=== PATIENT | female | born 1930 ===

== ENCOUNTER 2018-04-16 11:04 | Inpatient (IN) | payer MEDICARE, MEDICAID ==
[~2018-04-16] VITALS: Ht 152.4 cm; Wt 49.9 kg
[2018-04-16] MEDS ORDERED: PROT946L GT (11:34)
[2018-04-16] MEDS ORDERED: TRAM50TA2 GT (11:34)
[2018-04-16] MEDS ORDERED: CRAN450T3 GT (11:34)
[2018-04-16] MEDS ORDERED: QUET25TA GT (11:34)
[2018-04-16] MEDS ORDERED: HYDR-3974 GT (11:34)
[2018-04-16] MEDS ORDERED: FAMO-132 GT (11:34)
[2018-04-16] MEDS ORDERED: ASCO500C18 GT (11:34)
[2018-04-16] MEDS ORDERED: IPRA3AMP23 IH (11:34)
[2018-04-16] MEDS ORDERED: CHLO473M3 MM (11:34)
[2018-04-16] MEDS ORDERED: CLON0.5T GT (11:34)
[2018-04-16] MEDS ORDERED: MULT237L4 GT (11:34)
[2018-04-16] MEDS ORDERED: DIATR MEGLU/DIATRIZOATE SODIUM 120 ML BOTTLE PO ONE (12:00)
[2018-04-16] MEDS ORDERED: IV NORMAL SALINE 1000 ML BAG IV ONE (12:30)
[2018-04-16 12:45] LABS: BASOPHILS % (AUTO) 0.5 % (0.0-2.0); EOSINOPHILS # (AUTO) 0.2 K/uL (0.0-0.7); EOSINOPHILS % (AUTO) 2.1 % (0.0-7.0); HEMATOCRIT 36.7 % (31.2-41.9); HEMOGLOBIN 12.3 g/dL (10.9-14.3); LYMPHOCYTES # (AUTO) 0.8 K/uL (20.0-40.0); LYMPHOCYTES % (AUTO) 9.2 % (20.5-51.5); MEAN CORPUSCULAR HEMOGLOBIN 30.3 uug (24.7-32.8); MEAN CORPUSCULAR HGB CONC 34 g/dL (32.3-35.6); MEAN CORPUSCULAR VOLUME 90.5 fL (75.5-95.3); MONOCYTES # (AUTO) 0.5 K/uL (2.0-10.0); NEUTROPHILS # (AUTO) 6.9 K/uL (1.8-8.9); NEUTROPHILS % (AUTO) 82.2 % (38.5-71.5); PLATELET COUNT (AUTO) 143 K/uL (179-408); RED BLOOD CELL COUNT(AUTO) 4.05 MIL/uL (3.63-4.92); WHITE BLOOD COUNT (AUTO) 8.4 K/uL (3.8-11.8)
[2018-04-16 13:04] LABS: CARBON DIOXIDE 27 mmol/L (21-32); CHLORIDE 102 mmol/L (98-107); CREATININE 0.6 mg/dL (0.6-1.3); GLUCOSE 115 mg/dL (74-106); POTASSIUM 4.3 mmol/L (3.5-5.1); UREA NITROGEN, BLOOD 24 mg/dL (7-18)
[2018-04-16 13:10] LABS: ALANINE AMINOTRANSFERASE 19 U/L (14-59); ALKALINE PHOSPHATASE 104 U/L (50-136); ASPARTATE AMINOTRANSFERASE 16 U/L (15-37); BILIRUBIN,DIRECT 0.1 mg/dL (0.0-0.2); BILIRUBIN,TOTAL 0.5 mg/dL (0.2-1.0); TOTAL PROTEIN, SERUM 8.1 g/dL (6.4-8.2)
[2018-04-16 15:00] VITALS: BP 133/52
[2018-04-16 17:00] VITALS: BP 98/56
[2018-04-16] MEDS ORDERED: TRAMADOL HCL 50 MG TABLET GT PRN (17:00)
[2018-04-16] MEDS ORDERED: ACETAMINOPHEN 325 MG TABLET GT PRN (17:00)
[2018-04-16] MEDS ORDERED: HYDROCODONE/APAP 5-325MG TABLET GT PRN (17:00)
[2018-04-16] MEDS ORDERED: CLONAZEPAM 0.5 MG TABLET GT PRN (17:00)
[2018-04-16] MEDS ORDERED: HYDROCODONE/APAP 5-325MG TABLET PO PRN (17:00)
[2018-04-16] MEDS ORDERED: Z GUARD REMEDY PASTE 57 GM TUBE TOP PRN (17:00)
[2018-04-16] MEDS: FAMOTIDINE 20 MG TABLET GT SCH (17:00)
[2018-04-16] MEDS ORDERED: ONDANSETRON 4 MG/2 ML VIAL IV PRN (17:00)
[2018-04-16] MEDS ORDERED: ZOLPIDEM 5 MG TABLET PO PRN (17:00)
[2018-04-16] MEDS ORDERED: MAGNESIUM HYDROXIDE 30 ML LIQUID UDC PO PRN (17:00)
[2018-04-16] MEDS: IV NS 1000 ML 1,000 ML IV PRN (17:01)
[2018-04-16] MEDS ORDERED: LORAZEPAM 2 MG/1 ML VIAL IM PRN (18:30)
[2018-04-16 19:00] VITALS: BP 112/66
[2018-04-16] MEDS: LORAZEPAM 2 MG/1 ML VIAL IM PRN (19:05)
[2018-04-16 20:00] VITALS: BP 103/60
[2018-04-16] MEDS: QUETIAPINE FUMARATE 25 MG TABLET GT SCH (21:00)
[2018-04-16] MEDS: Z GUARD REMEDY PASTE 57 GM TUBE TOP SCH (21:50)
[2018-04-16] MEDS: CHLORHEXIDINE GLUCONATE 15 ML MOUTHWASH MM SCH (21:50)
[2018-04-16 22:00] VITALS: BP 107/60
[2018-04-17] VITALS (9 sets, daily range): BP systolic 90–112; BP diastolic 43–83
[2018-04-17] MEDS: IV NS 1000 ML 1,000 ML IV PRN (02:34)
[2018-04-17 05:18] LABS: BASOPHILS % (AUTO) 0.3 % (0.0-2.0); EOSINOPHILS # (AUTO) 0.2 K/uL (0.0-0.7); EOSINOPHILS % (AUTO) 2.6 % (0.0-7.0); HEMATOCRIT 33.6 % (31.2-41.9); HEMOGLOBIN 11.2 g/dL (10.9-14.3); LYMPHOCYTES # (AUTO) 0.6 K/uL (20.0-40.0); LYMPHOCYTES % (AUTO) 8.7 % (20.5-51.5); MEAN CORPUSCULAR HEMOGLOBIN 30.2 uug (24.7-32.8); MEAN CORPUSCULAR HGB CONC 34 g/dL (32.3-35.6); MONOCYTES # (AUTO) 0.5 K/uL (2.0-10.0); MONOCYTES % (AUTO) 6.4 % (0.0-11.0); NEUTROPHILS # (AUTO) 5.8 K/uL (1.8-8.9); PLATELET COUNT (AUTO) 146 K/uL (179-408); RED BLOOD CELL COUNT(AUTO) 3.73 MIL/uL (3.63-4.92); WHITE BLOOD COUNT (AUTO) 7.1 K/uL (3.8-11.8)
[2018-04-17 05:30] LABS: CARBON DIOXIDE 24 mmol/L (21-32); CHLORIDE 104 mmol/L (98-107); CHOLESTEROL 128 mg/dL (<200); CREATININE 0.5 mg/dL (0.6-1.3); GLUCOSE 117 mg/dL (74-106); HDL CHOLESTEROL 34 mg/dL (40-60); PHOSPHOROUS 3.6 mg/dL (2.5-4.9); POTASSIUM 4.1 mmol/L (3.5-5.1); TRIGLYCERIDES 97 MG/DL (30-150); UREA NITROGEN, BLOOD 16 mg/dL (7-18)
[2018-04-17] MEDS: QUETIAPINE FUMARATE 25 MG TABLET GT SCH ×2 (08:32→21:00)
[2018-04-17] MEDS: LORAZEPAM 2 MG/1 ML VIAL IM PRN (08:32)
[2018-04-17] MEDS: ASCORBIC ACID 500 MG TABLET GT SCH (08:32)
[2018-04-17] MEDS: MULTIVIT, IRON, MIN NO. 8, FA TABLET GT SCH (08:32)
[2018-04-17] MEDS: FAMOTIDINE 20 MG TABLET GT SCH ×2 (08:32→16:43)
[2018-04-17] MEDS: Z GUARD REMEDY PASTE 57 GM TUBE TOP SCH ×2 (08:33→22:52)
[2018-04-17] MEDS: CHLORHEXIDINE GLUCONATE 15 ML MOUTHWASH MM SCH ×2 (08:33→22:51)
[2018-04-17] MEDS ORDERED: Medication Not On Formulary EA (Ascorbic Acid (Vitamin C) 500 MG) GT SCH (09:00)
[2018-04-17] MEDS ORDERED: MULTIVITAMIN WITH MINERALS GT SCH (09:00)
[2018-04-17] MEDS: IV D5/ 0.9% NACL 1,000 ML IV SCH (11:32)
[2018-04-17] MEDS ORDERED: INSULIN REGULAR, HUMAN 300 UNIT/3 ML VIAL SQ PRN (11:45)
[2018-04-17] MEDS ORDERED: DEXTROSE 50% 50 ML DISP.SYRIN IV PRN (11:45)
[2018-04-17] MEDS: BLOOD SUGAR DIAGNOSTIC 1 EACH STRIP VI SCH ×3 (11:45→22:53)
[2018-04-17] MEDS ORDERED: IPRATROPIUM BROMIDE 0.5 MG/2.5 ML NEBU NEB PRN (13:00)
[2018-04-17] MEDS ORDERED: ALBUTEROL SULFATE 1.25 MG/3 ML NEBU NEB PRN (13:00)
[2018-04-17 18:35] LABS: *BILIRUBIN,URIN NEGATIVE (NEGATIVE); *BLOOD, URINE 2+ (NEGATIVE); *COLOR,URINE YELLOW (YELLOW); *KETONES,URINE TRACE (NEGATIVE); *PROTEIN,URINE 3+ (NEGATIVE); *UROBILINOGEN,URINE 0.2 E.U./dl (NORMAL); NITRITE, URINE POSITIVE (NEGATIVE); PH,URINE 5.5 (5.0-8.0); UGLUCOSE NEGATIVE (NEGATIVE)
[2018-04-17] MEDS ORDERED: LORAZEPAM 2 MG/1 ML VIAL IV PRN (18:35)
[2018-04-17 18:50] LABS: *CLARITY,URINE TURBID (CLEAR); LEUKOCYTE ESTERASE ,URINE 2+ (NEGATIVE)
[2018-04-17 18:51] LABS: BACTERIA,URINE MANY /HPF (NONE SEEN); MUCUS,URINE MANY /LPF (0-FEW); RBC,URINE 80-100 /HPF (0-3); SQUAMOUS EPITHELIAL CELL,UR MODERATE /HPF (NONE SEEN); WBC,URINE 80-100 /HPF (0-3)
[2018-04-18] VITALS (7 sets, daily range): BP systolic 90–124; BP diastolic 43–71
[2018-04-18 05:13] LABS: BASOPHILS % (AUTO) 0.5 % (0.0-2.0); EOSINOPHILS # (AUTO) 0.2 K/uL (0.0-0.7); EOSINOPHILS % (AUTO) 3.5 % (0.0-7.0); HEMATOCRIT 34.8 % (31.2-41.9); HEMOGLOBIN 11.6 g/dL (10.9-14.3); LYMPHOCYTES # (AUTO) 0.9 K/uL (20.0-40.0); LYMPHOCYTES % (AUTO) 15.1 % (20.5-51.5); MEAN CORPUSCULAR HEMOGLOBIN 29.9 uug (24.7-32.8); MEAN CORPUSCULAR HGB CONC 33 g/dL (32.3-35.6); MONOCYTES # (AUTO) 0.6 K/uL (2.0-10.0); MONOCYTES % (AUTO) 10.1 % (0.0-11.0); NEUTROPHILS # (AUTO) 4.2 K/uL (1.8-8.9); NEUTROPHILS % (AUTO) 70.8 % (38.5-71.5); PLATELET COUNT (AUTO) 150 K/uL (179-408); RED BLOOD CELL COUNT(AUTO) 3.87 MIL/uL (3.63-4.92); WHITE BLOOD COUNT (AUTO) 5.9 K/uL (3.8-11.8)
[2018-04-18 05:26] LABS: *BILIRUBIN,URIN NEGATIVE (NEGATIVE); *BLOOD, URINE 3+ (NEGATIVE); *CLARITY,URINE CLOUDY (CLEAR); *COLOR,URINE YELLOW (YELLOW); *KETONES,URINE NEGATIVE (NEGATIVE); *PROTEIN,URINE 2+ (NEGATIVE); *UROBILINOGEN,URINE 0.2 E.U./dl (NORMAL); LEUKOCYTE ESTERASE ,URINE 1+ (NEGATIVE); NITRITE, URINE POSITIVE (NEGATIVE); UGLUCOSE NEGATIVE (NEGATIVE)
[2018-04-18 05:30] LABS: CARBON DIOXIDE 24 mmol/L (21-32); CHLORIDE 105 mmol/L (98-107); CREATININE 0.5 mg/dL (0.6-1.3); GLUCOSE 93 mg/dL (74-106); PHOSPHOROUS 3.5 mg/dL (2.5-4.9); POTASSIUM 3.5 mmol/L (3.5-5.1); UREA NITROGEN, BLOOD 13 mg/dL (7-18)
[2018-04-18 05:42] LABS: *CREATININE,URINE 98.1 mg/dL (30-125); *URINE TOTAL PROTEIN RANDOM 134.8 mg/dL (<150/24HR)
[2018-04-18 06:10] LABS: BACTERIA,URINE MANY /HPF (NONE SEEN); RBC,URINE 80-100 /HPF (0-3); SQUAMOUS EPITHELIAL CELL,UR FEW /HPF (NONE SEEN); WBC,URINE TNTC /HPF (0-3)
[2018-04-18] MEDS: BLOOD SUGAR DIAGNOSTIC 1 EACH STRIP VI SCH ×3 (07:45→17:33)
[2018-04-18] MEDS: IV D5/ 0.9% NACL 1,000 ML IV SCH (07:45)
[2018-04-18] MEDS: Z GUARD REMEDY PASTE 57 GM TUBE TOP SCH ×2 (08:31→21:44)
[2018-04-18] MEDS: CHLORHEXIDINE GLUCONATE 15 ML MOUTHWASH MM SCH ×2 (08:31→21:42)
[2018-04-18] MEDS: MULTIVIT, IRON, MIN NO. 8, FA TABLET GT SCH (08:32)
[2018-04-18] MEDS: FAMOTIDINE 20 MG TABLET GT SCH ×2 (08:32→16:30)
[2018-04-18] MEDS: ASCORBIC ACID 500 MG TABLET GT SCH (08:32)
[2018-04-18] MEDS: QUETIAPINE FUMARATE 25 MG TABLET GT SCH ×2 (08:32→21:40)
[2018-04-18] MEDS ORDERED: DEXTROSE 50% 50 ML DISP.SYRIN IV PRN (10:00)
[2018-04-18] MEDS ORDERED: INSULIN REGULAR, HUMAN 300 UNIT/3 ML VIAL SQ PRN (10:00)
[2018-04-18] MEDS ORDERED: CEFEPIME HCL 1 G in IV DEXTROSE 5% 50 ML IV SCH (10:15)
[2018-04-18] MEDS: CEFEPIME HCL 1 G in IV DEXTROSE 5% 50 ML IV SCH (13:06)
[2018-04-18] MEDS ORDERED: CEFAZOLIN 1 G VIAL MC ONE (14:55)
[2018-04-18] MEDS ORDERED: IV NORMAL SALINE 1000 ML BAG IV ONE (14:55)
[2018-04-18] MEDS ORDERED: ETOMIDATE 20 MG/10 ML VIAL MC ONE (14:55)
[2018-04-18] MEDS ORDERED: GLUCERNA 1.2 1000ML LIQUID GT PRN (15:00)
[2018-04-19] MEDS: BLOOD SUGAR DIAGNOSTIC 1 EACH STRIP VI SCH ×3 (00:15→12:05)
[2018-04-19 04:00] VITALS: BP 101/29
[2018-04-19] MEDS: IV D5/ 0.9% NACL 1,000 ML IV SCH (04:14)
[2018-04-19 07:38] VITALS: BP 106/48
[2018-04-19 08:10] LABS: BASOPHILS % (AUTO) 0.4 % (0.0-2.0); EOSINOPHILS # (AUTO) 0.1 K/uL (0.0-0.7); EOSINOPHILS % (AUTO) 2.4 % (0.0-7.0); HEMATOCRIT 32.5 % (31.2-41.9); HEMOGLOBIN 10.9 g/dL (10.9-14.3); LYMPHOCYTES # (AUTO) 0.6 K/uL (20.0-40.0); LYMPHOCYTES % (AUTO) 9.8 % (20.5-51.5); MEAN CORPUSCULAR HEMOGLOBIN 30.6 uug (24.7-32.8); MEAN CORPUSCULAR HGB CONC 34 g/dL (32.3-35.6); MEAN CORPUSCULAR VOLUME 90.7 fL (75.5-95.3); MONOCYTES # (AUTO) 0.6 K/uL (2.0-10.0); MONOCYTES % (AUTO) 9.4 % (0.0-11.0); NEUTROPHILS # (AUTO) 4.7 K/uL (1.8-8.9); PLATELET COUNT (AUTO) 148 K/uL (179-408); RED BLOOD CELL COUNT(AUTO) 3.58 MIL/uL (3.63-4.92)
[2018-04-19] MEDS: MULTIVIT, IRON, MIN NO. 8, FA TABLET GT SCH (08:42)
[2018-04-19] MEDS: QUETIAPINE FUMARATE 25 MG TABLET GT SCH (08:42)
[2018-04-19] MEDS: FAMOTIDINE 20 MG TABLET GT SCH (08:42)
[2018-04-19] MEDS: ASCORBIC ACID 500 MG TABLET GT SCH (08:42)
[2018-04-19] MEDS: CHLORHEXIDINE GLUCONATE 15 ML MOUTHWASH MM SCH (08:43)
[2018-04-19] MEDS: Z GUARD REMEDY PASTE 57 GM TUBE TOP SCH (08:43)
[2018-04-19 09:10] LABS: CARBON DIOXIDE 25 mmol/L (21-32); CHLORIDE 107 mmol/L (98-107); CREATININE 0.5 mg/dL (0.6-1.3); GLUCOSE 107 mg/dL (74-106); MAGNESIUM 1.9 mg/dL (1.8-2.4); POTASSIUM 3.6 mmol/L (3.5-5.1); UREA NITROGEN, BLOOD 13 mg/dL (7-18)
[2018-04-19] MEDS ORDERED: CEFE1FRO IV (10:55)
[2018-04-19 11:45] VITALS: BP 92/56
[2018-04-19] MEDS: CEFEPIME HCL 1 G in IV DEXTROSE 5% 50 ML IV SCH (11:56)
== END 2018-04-19 14:56 | DRG 393 ==
LOC: ER 11:04 → MED 14:18 → DOU 14:35 → TELE-TD 15:17 → OBSER 16:42 → CCU 17:32 → TELE-TD 04-18 07:23
PROVIDERS: ADMIT Internal Medicine; ATTEND Internal Medicine
PROC: 5A1945Z Respiratory Ventilation, 24-96 Consecutive Hours (ICD-10-PCS; 2018-04-16)
PROC: 0DH63UZ Insertion of Feeding Device into Stomach, Percutaneous Approach (ICD-10-PCS; principal; 2018-04-18 11:30)
DX: Z43.1 Encounter for attention to gastrostomy (principal); G92 Toxic encephalopathy; J96.11 Chronic respiratory failure with hypoxia; Z99.11 Dependence on respirator [ventilator] status; N39.0 Urinary tract infection, site not specified; R13.10 Dysphagia, unspecified; Z93.0 Tracheostomy status; Z87.891 Personal history of nicotine dependence; E78.5 Hyperlipidemia, unspecified; E11.9 Type 2 diabetes mellitus without complications; F03.90 Unspecified dementia, unspecified severity, without behavioral disturbance, psychotic disturbance, mood disturbance, and anxiety; I25.10 Atherosclerotic heart disease of native coronary artery without angina pectoris; M85.80 Other specified disorders of bone density and structure, unspecified site; J44.9 Chronic obstructive pulmonary disease, unspecified; I70.0 Atherosclerosis of aorta; F41.9 Anxiety disorder, unspecified; D69.6 Thrombocytopenia, unspecified; B95.61 Methicillin susceptible Staphylococcus aureus infection as the cause of diseases classified elsewhere; Z79.4 Long term (current) use of insulin; G89.4 Chronic pain syndrome; R79.89 Other specified abnormal findings of blood chemistry; K29.70 Gastritis, unspecified, without bleeding; K21.9 Gastro-esophageal reflux disease without esophagitis
CPT/HCPCS: 36415; 43761; 70030-TC; 70450; 71045; 83735; 84100; 84156; 84300; 85025; 85730; 87077; 87086; 93005; 94002; 94003; A4663; G0378; J0690; J0692; J1815; J2060; J3490; J7030; J7042; J7060